=== PATIENT | male | born 1975 | race Caucasian/White ===

== ENCOUNTER → 2018-06-28 | Emergency (ER) | payer OTHER ==
[~2018-06-28] MED LIST: CETAPHIL226 GM TP; DOXYCYCLINE PO; HIBICLENS118 ML TP; MOTRIN PM CAPL1 EACH; MOTRIN800 MG PO
== END | disposition left against medical advice (07) ==
LOC: ER 01:59
DX: Z53.20 Procedure and treatment not carried out because of patient's decision for unspecified reasons (principal)